=== PATIENT | female | born 1965 | race Caucasian/White ===

== ENCOUNTER 2020-02-03 12:09 | Emergency (ER) | payer SELFPAY ==
[2020-02-03 12:18] VITALS: BMI 20.7
[2020-02-03 12:21] VITALS: BP 129/77; PULSE 102; RESP 18; TEMP 36.8; O2SAT 95
--- NOTE | 2020-02-03 12:29 | PC.NURSE ---
Pt stated she was bit by a bug that was round, flat, and bigger than a tick. Their are multiple itch bites all over her body. Pt states the bites itch.
--- NOTE | 2020-02-03 12:32 | ED_ITS ---
HPI - Skin/Abscess/Foreign Bdy General: Chief complaint: Skin/Abscess/Foreign Body Stated complaint: bites? Time Seen by Provider: 02/03/20 12:24 History of Present Illness: HPI narrative: Patient says she has bites all over. She slept in a camper for a couple days that had dogs and is previously she saw small brown insects in a camper and she said this is what bit her she denies any fleas or other exposure. MD complaint: insect bite/sting Onset (ago): day(s) Tetanus up to date: yes Location: generalized Associated symptoms: Reports no associated symptoms; Deny chills or fever(s) Review of Systems Narrative: Insect bites on body came from staying in a camper that used to have animals in it. Const: Denies: fever or chills Skin/Breast: Reports: other (Insect bites scattered all over) Psych: Denies: anxiety or depression PFSH ED PFSH: Social History Smoking and tobacco status: current every day smoker Physical Exam Const: COMMON NORMALS: no apparent distress Psych: COMMON NORMALS: mental status grossly normal Skin: NAILS: other (Possible red papules faint in color scattered around arms trunk back) Course Vital Signs: Vital signs: Vital Signs Temperature 98.3 F 02/03/20 12:21 Pulse Rate 102 H 02/03/20 12:21 Respiratory Rate 18 02/03/20 12:21 Blood Pressure 129/77 02/03/20 12:21 Pulse Oximetry 95 02/03/20 12:21 Discharge Plan Discharge Patient Disposition: Home, Self-Care Clinical Impression: Insect bites Qualifiers: Encounter type: initial encounter Site of insect bite: abdominal wall Qualified Code(s): S30.861A - Insect bite (nonvenomous) of abdominal wall, initial encounter Condition: Stable Prescriptions: New hydroxyzine HCl 10 mg tablet 10 mg PO Q8H PRN (Reason: itching) Qty: 7 RF: 0 Discharge Orders: Discharge Order (Routine); Ordered 02/03/20 Ordered By: Cr Love Discharge Diet: Usual diet Discharge Activity: Resume usual activity Patient Instructions: Insect Bite or Sting (ED) Activity Restrictions/Additional Instructions: Follow-up with medical provider as directed. Take medications as prescribed. Return to the ER or your medical provider if condition worsens. Please read and understand discharge instructions. If any questions ask please. Coding Level of Care Code ED Clinical Pharmacist for King Fowler
== END 2020-02-03 13:00 | disposition home or self-care (01) ==
LOC: ER 12:39
PROVIDERS: Emergency Provider Nurse Practitioner Family
DX: S30.861A Insect bite (nonvenomous) of abdominal wall, initial encounter (principal); X58.XXXA Exposure to other specified factors, initial encounter; F17.210 Nicotine dependence, cigarettes, uncomplicated
CPT/HCPCS: 12345; 99282

== ENCOUNTER 2023-07-14 16:17 | Emergency (ER) | payer MEDICAID, SELFPAY ==
[2023-07-14 19:01] LABS: Basophils # 0.1 10^3/uL (0.0-0.1); Basophils % 0.5 %; Eosinophils # 0.3 10^3/uL (0.0-0.8); Eosinophils % 3.2 %; Hematocrit 39.5 % (36-47); Lymphocytes # 2.6 10^3/uL (0.8-4.8); Lymphocytes % 26.4 %; Mean Corpuscular HGB Conc 34.7 g/dL (30-55); Mean Corpuscular Hemoglobin 31.1 pg (27-33); Mean Corpuscular Volume 89.6 fl (85-98); Mean Platelet Volume 9.6 fL (7.4-10.4); Monocytes # 0.8 10^3/uL (0.2-0.9); Monocytes % 8.1 %; Neutrophils # 5.62 10^3/uL (1.8-7.7); Neutrophils % 57.8 %; Nucleated Red Blood Cells % 0 %; Platelet Count 402 10^3/cmm (157-399); Red Blood Count 4.41 10^6/uL (3.85-5.65); Red Cell Distribution Width 12.4 % (12.1-15.1); White Blood Count 9.73 10^3/uL (3.29-11.43)
[2023-07-14 19:14] LABS: Alanine Aminotransferase 24 U/L (0-33); Albumin Level 3.8 g/dL (3.5-5.2); Alkaline Phosphatase 65 U/L (35-105); Anion Gap 12.3 (5-19); Aspartate Amino Transferase 31 U/L (0-32); Blood Urea Nitrogen 19 mg/dL (8-23); Calcium 8.9 mg/dL (8.5-10.5); Carbon Dioxide 31 mmol/L (22-29); Chloride 100 mmol/L (98-107); Globulin 3.7 g/dL (1.3-4.6); Glomerular Filtration Rate 85.4 mL/min (90-130); Glucose 94 mg/dL (65-115); Osmolality Calculated 292 mOsm/kg (285-295); Potassium 3.3 mmol/L (3.5-5.1); Sodium 140 mmol/L (136-145); Total Bilirubin 0.2 mg/dL (0.15-1.2); Total Protein 7.5 g/dL (6.6-8.7)
--- NOTE | 2023-07-14 19:20 | ED_ITS ---
HPI - General Adult General: Chief complaint: General Medical Stated complaint: weakness Time Seen by Provider: 07/14/23 19:11 Source: patient Mode of arrival: ambulatory Limitations: no limitations History of Present Illness: 58-year-old female states that she has been seen last Wednesday at [facility] for vomiting and found that she was septic and transferred to [facility]. She states that she been at [facility] for the week due to her sepsis she states she also believes that she had had a stroke and a brain bleed she is not a very good historian history is difficult at this time. She states that she became upset today and left AMA and came here. She states that she is felt improved her base complaint today is that she is constipated Associated symptoms: Deny chest pain, dyspnea, headache(s), nausea, rash or vomiting Review of Systems Const: Denies: fever(s), chills, body aches or change in appetite Eyes: Denies: blurry vision or eye discomfort ENMT: Denies: throat pain or dental pain Card: Denies: chest pain Resp: Denies: dyspnea GI: Reports: constipation; Denies: abdominal pain, nausea, vomiting or diarrhea : Denies: dysuria Musc: Denies: neck pain or back pain Skin/Breast: Denies: rash Neuro: Denies: headache(s) PFS ED PFSH: Social History Smoking and tobacco status: current every day smoker Physical Exam Const: COMMON NORMALS: no acute distress, patient oriented x3 and healthy appearing HENMT: COMMON NORMALS: normocephalic and atraumatic HEAD & SCALP: normocephalic and atraumatic Eye: COMMON NORMALS: Equal, round and reactive pupils present and EOMs intact bilaterally PUPIL: Yes Equal, round and reactive pupils present Neck/C-Spine: COMMON NORMALS: full ROM and supple Chest: COMMONS NORMALS: normal inspection of the chest and normal palpation of entire chest wall Resp: COMMON NORMALS: normal respiratory effort, No retractions, No use of accessory muscles and clear to auscultation bilaterally AUSCULTATION: clear to auscultation bilaterally Cardio: COMMON NORMALS: regular rate, regular rhythm and No murmurs present (Cardio) RATE: regular rate RHYTHM: regular rhythm GI: COMMON NORMALS: Normal to inspection, nondistended, normoactive bowel sounds present, Soft to palpation, non-tender and no masses PALPATION: Yes Soft to palpation Extremity: COMMON NORMALS: normal to inspection and full ROM Neuro: COMMON NORMALS: patient oriented x3, moves all extremities and no focal motor deficits Psych: COMMON NORMALS: mental status grossly normal, Normal thought process present and cooperative THOUGHT PROCESS: Normal thought process present Skin: COMMON NORMALS: no rashes or lesions noted and no wounds GENERAL SKIN EXAM: no rashes or lesions noted [facility] - General Adult Medical Decision Making Patient presents with main complaint of constipation did give her lactulose here blood work here is all normal she had a recent stroke left AMA from [facility] but she has no new symptoms here or changes no headache she is to follow-up with neurology there she is return if worsening she understands agrees with plan. Medical Records I reviewed the patient's medical records. Lab Data I reviewed the patient's lab results. 07/14/23 18:48 07/14/23 18:48 Radiology Impressions KUB X-Ray 07/14/23 19:30 IMPRESSION: 1. Abdominal calcifications as described above. 2. No acute findings. Laboratory Results WBC 9.73 10^3/uL (3.29-11.43) 07/14/23 18:48 RBC 4.41 10^6/uL (3.85-5.65) 07/14/23 18:48 Hgb 13.70 g/dL (11.27-16.99) 07/14/23 18:48 Hct 39.5 % (36-47) 07/14/23 18:48 MCV 89.6 fl (85-98) 07/14/23 18:48 MCH 31.1 pg (27-33) 07/14/23 18:48 MCHC 34.7 g/dL (30-55) 07/14/23 18:48 RDW 12.4 % (12.1-15.1) 07/14/23 18:48 Plt Count 402 10^3/cmm (157-399) H 07/14/23 18:48 MPV 9.6 fL (7.4-10.4) 07/14/23 18:48 Neut % (Auto) 57.8 % 07/14/23 18:48 Lymph % (Auto) 26.4 % 07/14/23 18:48 Mason % (Auto) 8.1 % 07/14/23 18:48 Eos % (Auto) 3.2 % 07/14/23 18:48 Baso % (Auto) 0.5 % 07/14/23 18:48 Neut # (Auto) 5.62 10^3/uL (1.8-7.7) 07/14/23 18:48 Lymph # (Auto) 2.6 10^3/uL (0.8-4.8) 07/14/23 18:48 Mason # (Auto) 0.8 10^3/uL (0.2-0.9) 07/14/23 18:48 Eos # (Auto) 0.3 10^3/uL (0.0-0.8) 07/14/23 18:48 Baso # (Auto) 0.1 10^3/uL (0.0-0.1) 07/14/23 18:48 Nucleated RBC % (auto) 0 % 07/14/23 18:48 Nucleated RBCs # 0.0 /100WBC 07/14/23 18:48 Sodium 140 mmol/L (136-145) 07/14/23 18:48 Potassium 3.3 mmol/L (3.5-5.1) L 07/14/23 18:48 Chloride 100 mmol/L (98-107) 07/14/23 18:48 Carbon Dioxide 31 mmol/L (22-29) H 07/14/23 18:48 Anion Gap 12.3 (5-19) 07/14/23 18:48 BUN 19 mg/dL (8-23) 07/14/23 18:48 Creatinine 0.7 mg/dL (0.5-0.9) 07/14/23 18:48 GFR Calculation 85.4 mL/min (90-130) L 07/14/23 18:48 Glucose 94 mg/dL (65-115) 07/14/23 18:48 Calculated Osmolality 292 mOsm/kg (285-295) 07/14/23 18:48 Calcium 8.9 mg/dL (8.5-10.5) 07/14/23 18:48 Total Bilirubin 0.2 mg/dL (0.15-1.2) 07/14/23 18:48 AST 31 U/L (0-32) 07/14/23 18:48 ALT 24 U/L (0-33) 07/14/23 18:48 Alkaline Phosphatase 65 U/L (35-105) 07/14/23 18:48 Total Protein 7.5 g/dL (6.6-8.7) 07/14/23 18:48 Albumin 3.8 g/dL (3.5-5.2) 07/14/23 18:48 Globulin 3.7 g/dL (1.3-4.6) 07/14/23 18:48 Urine Color Yellow (Yellow) 07/14/23 19:26 Urine Appearance Hazy (CLEAR) A 07/14/23 19:26 Urine pH 5 (5-7) 07/14/23 19:26 Ur Specific [place] 1.015 (1.005-1.030) 07/14/23 19:26 Urine Protein Trace (Negative) 07/14/23 19:26 Urine Glucose (UA) 4+ (Normal) H 07/14/23 19:26 Urine Ketones Negative (Negative) 07/14/23 19:26 Urine Blood 2+ (Negative) H 07/14/23 19:26 Urine Nitrate Negative (Negative) 07/14/23 19:26 Urine Bilirubin Neg (Negative) 07/14/23 19:26 Urine Urobilinogen Norm mg/dL (Negative) 07/14/23 19:26 Ur Leukocyte Esterase Negative (Negative) 07/14/23 19:26 Urine RBC 0-4 /hpf (0-2) H 07/14/23 19:26 Urine WBC 5-10 /hpf (0-5) H 07/14/23 19:26 Ur Squamous Epith Cells 15-25 /hpf (0-5) H 07/14/23 19:26 Amorphous Sediment Not Reportable 07/14/23 19:26 Urine Bacteria Trace /hpf (NONE) 07/14/23 19:26 Urine Mucus None /hpf 07/14/23 19:26 Urine Yeast 1+ /hpf H 07/14/23 19:26 All radiology interpretation(s) finalized by discharge Discharge Plan Discharge Patient Disposition: Home Clinical Impression: Constipation Condition: Stable Discharge Orders: Discharge ED (Routine); Ordered 07/14/23 Ordered By: Korby Anitha Discharge Diet: Advance as tolerated Discharge Activity: Resume usual activity Patient Instructions: Constipation (ED) Coding Level of Care Code ED Career Technical Supervisor for [facility] Fowler
--- NOTE | 2023-07-14 19:30 | XRR_ITS ---
PROCEDURE INFORMATION: Exam: XR Abdomen Exam date and time: 07/14/2023 7:56 PM Age: 58 years old Clinical indication: Constipation; Additional info: Constipation, no bm for 7 days, when she eats she throws it back up TECHNIQUE: Imaging protocol: Radiologic exam of the abdomen. Views: Frontal supine view of the abdomen. 1 View. COMPARISON: CR XR lumbar spine 2-3V* [id number] 06/09/2018 11:46 PM FINDINGS: Gastrointestinal tract: No significant fecal burden. No bowel dilation. Organs: Upper mid abdominal and left upper quadrant calcifications are probably related to the pancreas and spleen respectively. Several calcifications are also probably present within the liver. Bones/joints: Unremarkable. XR/XR KUB [id number] IMPRESSION: 1. Abdominal calcifications as described above. 2. No acute findings.
[2023-07-14 19:51] LABS: Add Urine Microscopic? YES; Bilirubin Urine Neg (Negative); Blood Urine 2+ (Negative); Glucose Urine UA 4+ (Normal); Ketones Urine Negative (Negative); Leukocyte Esterase Urine Negative (Negative); Nitrate Urine Negative (Negative); Protein Urine Trace (Negative); Specific Gravity, Urine 1.015 (1.005-1.030); Urine Appearance Hazy (CLEAR); Urine Color Yellow (Yellow); Urobilinogen Urine Norm (Negative); pH Urine 5 (5-7)
[2023-07-14 19:58] LABS: Add Urine Culture? Yes; Bacteria Urine TRACE /hpf; RBC Urine 0-4 /hpf (0-2); Squamous Epithelial Cell Urine 15-25 /hpf (0-5)
[2023-07-14] MEDS: lactulose oral liq 20 gm/30 mL UDC 30 GM PO (21:59)
== END 2023-07-14 22:01 | disposition home or self-care (01) ==
PROVIDERS: Emergency Provider Emergency Medicine
DX: K59.00 Constipation, unspecified (principal); F17.210 Nicotine dependence, cigarettes, uncomplicated
CPT/HCPCS: 36415; 74018; 80053; 81001; 85025; 87086; 87106; 99284

== ENCOUNTER → 2025-01-18 13:27 | Outpatient (BNVA) | payer MEDICAID, SELFPAY | PROVIDERS: Visit Provider Emergency Medicine | DX: R10.9 Unspecified abdominal pain (principal); M54.9 Dorsalgia, unspecified | CPT/HCPCS: 81000; 87086 ==